=== PATIENT | male | born 1955 | race Two or more races ===

== ENCOUNTER 2022-05-13 13:19 | Inpatient (IN) | payer OTHER ==
[2022-05-13 15:49] VITALS: BMI 26.6
[2022-05-13] MEDS ORDERED: BISMUTH SUBSALICYLATE 524 MG/30 ML PO PRN (17:10)
[2022-05-13] MEDS ORDERED: NALOXONE HCL (KLOXXADO) 8 MG SPRAY NS PRN (17:10)
[2022-05-13] MEDS ORDERED: ACETAMINOPHEN 325 MG TABLET (FP) PO PRN ×2 (17:10)
[2022-05-13] MEDS ORDERED: BENZOCAINE/MENTHOL (CHLORASEPTIC ) LOZENGE MM PRN (17:10)
[2022-05-13] MEDS ORDERED: DICYCLOMINE HCL 10 MG CAPSULE PO PRN (17:10)
[2022-05-13] MEDS ORDERED: LOPERAMIDE HCL 2 MG CAPSULE PO PRN (17:10)
[2022-05-13] MEDS ORDERED: cloNIDine HCL 0.1 MG TABLET PO PRN (17:10)
[2022-05-13] MEDS ORDERED: IBUPROFEN 600 MG TABLET (FP) PO PRN (17:10)
[2022-05-13] MEDS ORDERED: NICOTINE 10 MG CARTRIDGE (INHALER) IH PRN (17:10)
[2022-05-13] MEDS ORDERED: MAGNESIUM HYDROX 2400MG/30ML ORAL SUSPENSION 30 ML CUP PO PRN (17:10)
[2022-05-13] MEDS ORDERED: ONDANSETRON *ODT* 4 MG TABLET SL PRN (17:10)
[2022-05-13] MEDS ORDERED: MAG HYDROX/AL HYDROX/SIMETH 30 ML UNIT-DOSE CUP PO PRN (17:10)
[2022-05-13] MEDS ORDERED: methaDONE HCL 10 MG TABLET (FOR DETOX USE ONLY) PO ONE (18:45)
[2022-05-13] MEDS: PRENATAL VITAMINS W/ FOLIC ACID TABLET (FP) PO SCH (18:52)
[2022-05-13] MEDS: MELATONIN 5 MG TABLETS PO SCH (22:25)
[2022-05-13] MEDS: THIAMINE HCL 100 MG TABLET (FP) PO SCH (22:25)
[2022-05-13] MEDS: hydrOXYzine PAMOATE 25 MG CAPSULE (FP) PO PRN (22:27)
[2022-05-13] MEDS: METHOCARBAMOL 500 MG TABLET PO PRN (22:27)
[2022-05-14] MEDS: PRENATAL VITAMINS W/ FOLIC ACID TABLET (FP) PO SCH (10:19)
[2022-05-14] MEDS: IBUPROFEN 400 MG TABLET (FP) PO PRN (10:21)
[2022-05-14 10:49] LABS: CALCIUM 8.9 mg/dL (8.5-10.1)
[2022-05-14 10:50] LABS: BLOOD UREA NITROGEN 16.3 mg/dL (7-18)
[2022-05-14 10:53] LABS: CREATININE 0.8 mg/dL (0.55-1.3)
[2022-05-14 10:55] LABS: BILIRUBIN,TOTAL 0.3 mg/dL (0.2-1); TOT PROT 5.6 g/dl (6.4-8.2)
[2022-05-14 10:56] LABS: HEMATOCRIT 37.3 % (35.4-49); HEMOGLOBIN 12.4 GM/dL (11.7-16.9); MCH 30.7 pg (25.7-33.7); MCHC 33.4 g/dl (32.0-35.9); MEAN CELL VOLUME 91.9 fl (80-96); MEAN PLT VOLUME 7.3 fl (7.5-11.1); PLATELET COUNT 385 10^3/uL (134-434); RBC 4.06 M/mm3 (4.00-5.60); RDW 13.7 % (11.9-15.9); WHITE BLOOD COUNT 7.3 K/mm3 (4.0-10.0)
[2022-05-14] MEDS: THIAMINE HCL 100 MG TABLET (FP) PO SCH (22:07)
[2022-05-14] MEDS: METHOCARBAMOL 500 MG TABLET PO PRN (22:07)
[2022-05-14] MEDS: MELATONIN 5 MG TABLETS PO SCH (22:07)
[2022-05-14] MEDS: hydrOXYzine PAMOATE 25 MG CAPSULE (FP) PO PRN (22:07)
[2022-05-15] MEDS ORDERED: methaDONE HCL 10 MG TABLET (FOR DETOX USE ONLY) PO ONE (10:00)
[2022-05-15] MEDS: PRENATAL VITAMINS W/ FOLIC ACID TABLET (FP) PO SCH (10:03)
[2022-05-15] MEDS: MELATONIN 5 MG TABLETS PO SCH (22:23)
[2022-05-15] MEDS: hydrOXYzine PAMOATE 25 MG CAPSULE (FP) PO PRN (22:24)
[2022-05-15] MEDS: METHOCARBAMOL 500 MG TABLET PO PRN (22:24)
[2022-05-15] MEDS: THIAMINE HCL 100 MG TABLET (FP) PO SCH (22:24)
[2022-05-16] MEDS: METHOCARBAMOL 500 MG TABLET PO PRN (10:19)
[2022-05-16] MEDS: PRENATAL VITAMINS W/ FOLIC ACID TABLET (FP) PO SCH (10:19)
[2022-05-16] MEDS: IBUPROFEN 400 MG TABLET (FP) PO PRN (10:20)
[2022-05-16] MEDS: MELATONIN 5 MG TABLETS PO SCH (22:36)
[2022-05-16] MEDS: THIAMINE HCL 100 MG TABLET (FP) PO SCH (22:36)
[2022-05-17] MEDS ORDERED: methaDONE HCL 10 MG TABLET (FOR DETOX USE ONLY) PO ONE (10:00)
[2022-05-17] MEDS: PRENATAL VITAMINS W/ FOLIC ACID TABLET (FP) PO SCH (10:07)
[2022-05-17] MEDS: METHOCARBAMOL 500 MG TABLET PO PRN ×2 (10:08→22:10)
[2022-05-17] MEDS: MELATONIN 5 MG TABLETS PO SCH (22:10)
[2022-05-17] MEDS: THIAMINE HCL 100 MG TABLET (FP) PO SCH (22:10)
[2022-05-18 09:23] VITALS: BP 116/83; PULSE 78; RESP 16; TEMP 97.3
[2022-05-18] MEDS: PRENATAL VITAMINS W/ FOLIC ACID TABLET (FP) PO SCH (10:28)
== END 2022-05-18 11:28 | disposition other institution (70) | DRG 897 ==
LOC: YASAS 13:19 → Y3N 18:22
PROVIDERS: ADMIT Allergy & Immunology; ATTEND Surgery
PROC: HZ2ZZZZ Detoxification Services for Substance Abuse Treatment (ICD-10-PCS; principal; 2022-05-13)
DX: F11.23 Opioid dependence with withdrawal (principal); F14.20 Cocaine dependence, uncomplicated; F12.90 Cannabis use, unspecified, uncomplicated; F17.210 Nicotine dependence, cigarettes, uncomplicated; F41.9 Anxiety disorder, unspecified; F32.A Depression, unspecified; J45.909 Unspecified asthma, uncomplicated
CPT/HCPCS: 36415; 80053; 85027; 86780; 87811; C9803-CS; U0003; U0005

== ENCOUNTER 2022-05-18 11:30 | Inpatient (IN) | payer OTHER ==
[2022-05-18 11:43] VITALS: BP 140/92; PULSE 90; RESP 18; TEMP 96.9
== END 2022-05-18 13:21 | disposition left against medical advice (07) | DRG 894 ==
LOC: YASAS 11:30 → Y3W 11:32
PROVIDERS: ADMIT Allergy & Immunology; ATTEND Psychiatry & Neurology Pain Medicine
PROC: HZ42ZZZ Group Counseling for Substance Abuse Treatment, Cognitive-Behavioral (ICD-10-PCS; principal; 2022-05-18)
DX: F11.20 Opioid dependence, uncomplicated (principal); F14.20 Cocaine dependence, uncomplicated; F17.210 Nicotine dependence, cigarettes, uncomplicated; J45.909 Unspecified asthma, uncomplicated